=== PATIENT | female | born 1990 | race Caucasian/White ===

== ENCOUNTER → 2018-07-25 | Outpatient (CLI) | payer BC, SELFPAY ==
[2013-10-01 17:45] VITALS: BMI 20.7
[2018-07-25 16:34] LABS: Progesterone Level 0.57 ng/mL (See Comment)
[2018-07-25 16:39] LABS: Pregnancy, Serum, hCG Quali. NEGATIVE Negative (0-9 Nonpreg)
[2018-07-25 17:48] LABS: Chlamydia Trachomatis by PCR Negative (Negative); Neisserai gonorrhoeae by PCR Negative (Negative); Probe Check PASS; Sample Adequacy Control PASS; Specimen Processing Control PASS
[2018-07-30 11:28] LABS: HPV APTIMA, High Risk Negative (Negative)
== END | disposition home or self-care (01) ==
LOC: WOBLAB 14:22
PROVIDERS: Visit Provider Obstetrics & Gynecology
DX: Z30.430 Encounter for insertion of intrauterine contraceptive device (principal); Z12.4 Encounter for screening for malignant neoplasm of cervix; Z11.3 Encounter for screening for infections with a predominantly sexual mode of transmission
CPT/HCPCS: 36415; 84144; 84703; 87491; 87591; 87624; 88175; G0145

== ENCOUNTER 2019-01-13 18:21 | Emergency (ER) | payer BC, SELFPAY ==
[2019-01-13 18:22] VITALS: BP 153/118; PULSE 101; RESP 18; TEMP 36.8; O2SAT 95; BMI 22.1
--- NOTE | 2019-01-13 18:58 | ED.DCSUM_ITS ---
- ER Visit Summary Date of Service: 01/13/19 Chief Complaint: [Anxiety ] History of Present Illness: The patient is a 28 F [presents to the emergency department complaint of feeling anxious for the last 2 months. Patient states she is had a lot of stressors at work as well as at home. Patient has not a sc heduled appointment to see her family doctor tomorrow. Patient states that she used to be on Zoloft until about 2 months ago when she stopped taking it because she did not want to be on medication any longer. Patient denies feeling suicidal or homicidal. She denies any hallucinations. Patient does admit to drinking alcohol this evening. Patient presents with her best friend and her [id number]. They do not have any concern for suicidality.] Physical Examination: [HEENT-PERRLA, EOMI. Cranial nerves II through XII grossly intact. TMs clear. Mucous membranes moist. No adenopathy. Tearful. Cardiovascular-regular rate and rhythm without murmur or ectopy Lungs-clear to auscultation, chest wall stable without crepitus or subcu emphysema Abdomen-normoactive bowel sounds, soft, nontender, no rebound or rigidity, no peritoneal signs. Extremities-intact ?4, normal range of motion, normal pulses, atraumatic] Test Results: [None indicated] Emergency Department Course and Treatment: Patient given 1 dose of Ativan 1 mg p.o. [] Treatment Plan: [Will be given a prescription for 2 Ativan tablets and she will see her primary care physician tomorrow. She will be seen by social services analyst in the emergency department to help facilitate some outpatient follow-up counselor or psychiatry.] Disposition: [Discharged home in stable condition.] Impression: [Anxiety reaction] This note was generated with [employer] dictation software. It may contain incorrect words, spelling, and punctuation that were not noted in review of the chart prior to signing ED Disposition - Plan for ED Patient: Referrals: Shmuel Greene MD [Primary Care Provider] -
--- NOTE | 2019-01-13 19:01 | ED.DEP ---
ED Disposition - Plan for ED Patient: Instructions: Panic Attack Prescriptions: Lorazepam [Ativan] 1 mg PO TID PRN #3 tab PRN Reason: Anxiety Prescription Printed Referrals: Shmuel Greene MD [Primary Care Provider] - 1 Day
[2019-01-13] MEDS: LORazepam 1 MG Tablet PO (19:03)
[2019-01-13 19:08] VITALS: PULSE 72; RESP 16; O2SAT 100
== END 2019-01-13 19:13 | disposition home or self-care (01) ==
LOC: ED 19:11
PROVIDERS: Emergency Provider Emergency Medicine; Family Provider Family Medicine; PCP Family Medicine
DX: F41.1 Generalized anxiety disorder (principal); Z79.899 Other long term (current) drug therapy
CPT/HCPCS: 99283

== ENCOUNTER → 2019-11-04 | Outpatient (CLI) | payer BC, SELFPAY ==
[2019-11-11 15:36] LABS: HPV APTIMA, High Risk Negative (Negative); HPV Reflexed? YES, CHARGE PATIENT
== END | disposition home or self-care (01) ==
LOC: LABSPEC 13:19
PROVIDERS: PCP Family Medicine; Visit Provider Obstetrics & Gynecology
DX: Z12.4 Encounter for screening for malignant neoplasm of cervix (principal)
CPT/HCPCS: 87624; 88175; G0145

== ENCOUNTER → 2020-05-21 10:05 | Outpatient (CLI) | payer OTHER, SELFPAY ==
[2020-05-21 11:46] LABS: hCG Titer Quant., Serum 3037 mIU/mL (1-3)
== END ==
PROVIDERS: PCP Family Medicine; Visit Provider Student in an Organized Health Care Education/Training Program
DX: N92.6 Irregular menstruation, unspecified (principal)
CPT/HCPCS: 36415; 84702

== ENCOUNTER → 2020-05-23 16:08 | Outpatient (CLI) | payer OTHER, SELFPAY ==
[2020-05-23 18:08] LABS: hCG Titer Quant., Serum 6114 mIU/mL (1-3)
== END ==
PROVIDERS: PCP Family Medicine; Visit Provider Student in an Organized Health Care Education/Training Program
DX: O20.0 Threatened abortion (principal); Z3A.00 Weeks of gestation of pregnancy not specified
CPT/HCPCS: 36415; 84702

== ENCOUNTER → 2020-05-30 16:00 | Outpatient (CLI) | payer OTHER, SELFPAY ==
[2020-05-30 17:49] LABS: Absolute Lymphocyte Count 1.37 X10^3/uL (0.83-4.51); Absolute Neutrophil Count 5.6 X10^3/uL (2.0-7.7); Basophil# 0.04 X10^3/uL; Basophil% 0.5 % (0-1); Eosinophil# 0.14 X10^3/uL; Eosinophils% 1.8 % (0-5); Hematocrit 36.1 % (37-47); Hemoglobin 12.3 g/dL (12.0-15.0); Lymphocyte # 1.37 X10^3/ul (4.0); Lymphocyte % 17.7 % (19-41); Mean Corp Hgb Conc 34.1 g/dL (32-36); Mean Corpuscular Hgb 33.4 pg (27.0-32.0); Mean Corpuscular Volume 98.1 fL (81-99); Mean Platelet Vol. 9.9 fl (6.2-12.0); Monocyte# 0.58 X10^3/uL; Monocyte% 7.5 % (0-10); NRBC Flagged by Analyzer 0 % (0-5); Neutrophil # 5.56 X10^3/uL (2.7-7.7); Neutrophil % 72.1 % (47-70); Platelet Count 266 K/mm3 (150-450); RBC Distribution Width CV 11.6 % (11.6-14.6); RBC Distribution Width SD 41.8 fl (35.1-43.9); Red Blood Count 3.68 M/mm3 (4.2-5.4); White Blood Count 7.7 K/mm3 (4.4-11.0)
[2020-05-31 09:20] LABS: HIV - WCH Non-Reactive (Nonreactive); Hepatitis B Surface Antigen Non-Reactive (Nonreactive); Hepatitis C Antibody Non-Reactive (Nonreactive); Rubella IgG Reactive (Nonreactive)
[2020-06-02 01:42] LABS: Prenatal RPR NONREACTIVE (NONREACTIVE)
[2020-06-02 08:08] LABS: Chlamydia By Nucleic Acid AMP Negative (Negative)
[2020-06-02 09:35] LABS: Gonococcus By Nucleic Acid AMP Negative (Negative)
== END ==
PROVIDERS: PCP Family Medicine; Visit Provider Student in an Organized Health Care Education/Training Program
DX: Z34.81 Encounter for supervision of other normal pregnancy, first trimester (principal)
CPT/HCPCS: 36415; 85025; 86703; 86762; 86803; 87086; 87088; 87340; 87491; 87591

== ENCOUNTER → 2020-10-31 13:07 | Outpatient (CLI) | payer OTHER, SELFPAY ==
[2020-10-31 17:01] LABS: Hematocrit 32.7 % (37-47); Hemoglobin 10.8 g/dL (12.0-15.0); Mean Corpuscular Hgb 31.2 pg (27.0-32.0); Mean Corpuscular Volume 94.5 fL (81-99); Mean Platelet Vol. 9.7 fl (6.2-12.0); Platelet Count 233 K/mm3 (150-450); RBC Distribution Width CV 12.6 % (11.6-14.6); RBC Distribution Width SD 43.8 fl (35.1-43.9); Red Blood Count 3.46 M/mm3 (4.2-5.4); White Blood Count 9.7 K/mm3 (4.4-11.0)
[2020-10-31 17:11] LABS: Glucose Challenge Gest 1H 50g 146 mg/dL (70-140)
== END ==
PROVIDERS: PCP Family Medicine; Visit Provider Obstetrics & Gynecology
DX: Z34.83 Encounter for supervision of other normal pregnancy, third trimester (principal)
CPT/HCPCS: 82950; 85027

== ENCOUNTER → 2020-11-04 06:49 | Outpatient (CLI) | payer OTHER, SELFPAY ==
[2020-11-04 08:06] LABS: Glucose GTT-Gestation. Fasting 86 mg/dL (<105)
[2020-11-04 09:12] LABS: Glucose GTT-Gestational 1 Hr 207 mg/dL (<190)
[2020-11-04 10:05] LABS: Glucose GTT-Gestational 2 Hr 204 mg/dL (<165)
[2020-11-04 10:56] LABS: Glucose GTT-Gestational 3 Hr 98 L (<145)
== END ==
PROVIDERS: PCP Family Medicine; Referring Provider Obstetrics & Gynecology; Visit Provider Obstetrics & Gynecology
DX: O24.912 Unspecified diabetes mellitus in pregnancy, second trimester (principal); Z3A.00 Weeks of gestation of pregnancy not specified
CPT/HCPCS: 36415; 82951; 82952

== ENCOUNTER → 2020-12-29 | Outpatient (CLI) | payer OTHER, SELFPAY | END | disposition home or self-care (01) | PROVIDERS: PCP Family Medicine; Visit Provider Obstetrics & Gynecology | DX: Z36.85 Encounter for antenatal screening for Streptococcus B (principal) | CPT/HCPCS: 87081 ==

== ENCOUNTER 2021-01-16 07:10 | Inpatient (IN) | payer OTHER, SELFPAY ==
[2021-01-16] VITALS (32 sets, daily range): BP systolic 115–148; BP diastolic 66–95; PULSE 67–89; RESP 18; TEMP 36.8–37.1; O2SAT 90–100; BMI 28.8
[2021-01-16] MEDS: Lactated Ringers 1,000 ML 50 ML IV (07:30)
[2021-01-16] MEDS: Oxytocin 30 units/NS 500 ml 30 UNITS/500 ML IV.SOLN IV (08:13)
[2021-01-16 08:24] LABS: Absolute Lymphocyte Count 1.17 X10^3/uL (0.83-4.51); Absolute Neutrophil Count 7.1 X10^3/uL (2.0-7.7); Basophil# 0.02 X10^3/uL; Basophil% 0.2 % (0-1); Eosinophil# 0.08 X10^3/uL; Eosinophils% 0.9 % (0-5); Hematocrit 36.1 % (37-47); Hemoglobin 11.7 g/dL (12.0-15.0); Lymphocyte # 1.17 X10^3/ul (0.83-4.51); Mean Corp Hgb Conc 32.4 g/dL (32-36); Mean Corpuscular Hgb 29.3 pg (27.0-32.0); Mean Corpuscular Volume 90.3 fL (81-99); Mean Platelet Vol. 11.3 fl (6.2-12.0); Monocyte% 6.7 % (0-10); NRBC Flagged by Analyzer 0 % (0-5); Neutrophil % 78.9 % (47-70); Platelet Count 211 K/mm3 (150-450); RBC Distribution Width CV 12.5 % (11.6-14.6); RBC Distribution Width SD 40.8 fl (35.1-43.9)
--- NOTE | 2021-01-16 08:32 | PCM.HP.BLA ---
History and Physical Date of Admission: 01/16/21 Chief complaint: Induction of labor at term History present illness: 30-year-old G2, P1 at 39 weeks and 0 days with ABRAHAM: 01/23/2021 by 6-week ultrasound arrives for induction of labor with GDM A2. Denies headache, visual changes, chest pain, shortness of breath, nausea vomiting, right upper quadrant pain. Patient states good movement. is complicated by GDM A2, originally with IUD early and removed this , resolved polyhydramnios Obstetric history: G1: term G2: Current Past medical history: GDM A2 Medications: vitamin, Levemir 10 units nightly Past surgical history: None Allergies: No known drug allergies Social history: Half pack per day smoker, denies alcohol or drug use Family history: Denies history DVT or PE Review of systems: Besides above pertinent positives a full review of systems was performed and found to be negative Physical exam: Vitals: Blood pressure 137/92 pulse 70 General: Normal-appearing no acute distress HEENT: Normocephalic atraumatic no cervical lymphadenopathy Cardiac/respiratory: No use of accessory muscles, nonlabored breathing Abdomen: Soft, nontender, gravid Extremities: No peripheral edema normal peripheral pulses Psych: Normal affect normal demeanor nonpressured speech Labs: White blood cell count 9.0 hemoglobin 11.7 hematocrit 36.1 platelets 211 Assessment and plan: 30-year-old G2, P1 at 39 weeks arrives for induction of labor for GDM A2 at term Admit labor and delivery CEFM Induction via Pitocin and AROM GBS negative GDM A2: We will continue to monitor blood sugars and treat if needed Anesthesia to see Routine orders
[2021-01-16 08:46] LABS: Bedside Glucose 77 mg/dL (70-110)
[2021-01-16] MEDS: Lactated Ringers 500 ML 999 ML IV (08:52)
[2021-01-16] MEDS: fentaNYL-bupivacaine (epidural) 100 ML BAG EPIDURAL (09:46)
[2021-01-16 10:00] LABS: Bedside Glucose 70 mg/dL (70-110)
[2021-01-16 12:56] LABS: Bedside Glucose 81 mg/dL (70-110)
[2021-01-16] MEDS: Oxytocin 30 units/NS 500 ml 30 UNITS/500 ML IV.SOLN 334 UNITS IV (14:16)
--- NOTE | 2021-01-16 15:23 | EX.PCM.OBRPT ---
Vaginal Delivery Findings Description of Procedure: Preoperative diagnosis: Term , GDM A2 Postoperative diagnosis: Term , GDM A2, retained placenta Procedure: Spontaneous vaginal delivery, bedside banjo Surgeon: João Ochoa MD EBL: 400 cc Complications none Specimen: None Findings: Female infant in vertex position DOUG. Apgars 8/9. Placenta with cord traction and fundal massage noted to be mildly adhesed to the uterus. Cord avulsed. Manual extraction placenta revealed anterior portion of placenta mildly adhesed to uterus. Manual extraction of placenta performed. Bedside banjo removed remaining placental tissue. Bedside ultrasound post procedure showed thin endometrial stripe. First-degree midline perineal laceration noted and repaired in typical fashion. Consent: Patient arrived for induction of labor with GDM A2 at term. Progressed to complete dilation, had spontaneous vaginal delivery. Then noted to have above findings. Educated patient on retained placenta and agreed to manual extraction along with bedside banjo. Procedure: Normal spontaneous vaginal delivery of a viable female , vertex DOUG. Head and shoulders delivered with ease. Cord cut clamped. Baby handed off to patient. Placenta was attempted to deliver via cord traction and fundal massage, with above findings noted. Cord avulsed. Patient notified of findings. Manual extraction of placenta was performed and majority of placenta was removed. Remaining placental was removed via bedside banjo, anterior lip of the cervix was grasped with ring forcep and bedside banjo was used under direct visualization with small amounts of remaining placental membranes removed. Post procedure bedside ultrasound was performed and found to have thin endometrial stripe. IV Pitocin was used to facilitate uterine contractions.Good hemostasis was noted. First-degree midline perineal laceration was noted and repaired in typical fashion.
[2021-01-16] MEDS: Ibuprofen 600 MG Tablet PO (15:53)
[2021-01-16] MEDS: Acetaminophen 500 MG Tablet 1000 MG PO (19:56)
[2021-01-17] VITALS: BP 123/78; PULSE 78; RESP 18; TEMP 36.9
[2021-01-17 05:15] VITALS: BP 131/78; PULSE 62; RESP 18; TEMP 36.4
[2021-01-17] MEDS: Acetaminophen 500 MG Tablet 1000 MG PO (05:20)
[2021-01-17 06:26] LABS: Bedside Glucose 76 mg/dL (70-110)
--- NOTE | 2021-01-17 08:36 | PCM.DC ---
Discharge Instructions Diet Discharge Diet: No restrictions Activity Discharge Activity: Return to Normal Activity, May Drive and May Shower May resume sexual activity in: 4-6 weeks Weight Bearing Status: Weight bearing as tolerated Dressing / Incision Call your doctor if your incision/area has: Continuous Slow Oozing and Foul Smelling Discharge Call your doctor if you observe: Fever of 101 or Higher, Shortness of breath and Chest pain Follow Up Care Please Follow Up With: João Ochoa MD When: 2 week telehealth, 4 to 6 weeks Test Results: Test results from this visit will be discussed in further detail at your follow-up appointment, if applicable. Discharge Plan Admission Admit Date/Time: 01/16/21 07:10 Attending Provider: João Ochoa Primary Care Provider: Shmuel Greene Discharge Orders/Prescriptions Prescriptions: No Action Levemir Flexpen 100 unit/mL (3 mL) Insulin Pen 10 unit SUBCUT QHS RF: 0 PNV 29-1 29 mg iron- 1 mg Tablet 1 tab PO DAILY RF: 0 Disposition Discharge Orders: Discharge Patient (Routine); Ordered 01/17/21 Ordered By: Dr. João Ochoa
--- NOTE | 2021-01-17 08:36 | PCM.PN.OB ---
Subjective Subjective No overnight complaints. Pain well controlled. Objective Data Objective Data Vital Signs: Vital Signs Temp Pulse Resp BP Pulse Ox 97.5 F L 62 18 131/78 H 99 01/17/21 05:15 01/17/21 05:15 01/17/21 05:15 01/17/21 05:15 01/16/21 14:39 Oxygen Delivery Method Room Air Weight: 183 lb 13.848 oz Body Mass Index (BMI) 28.8 Intake & Output: Intake and Output for Last 24 Hours 01/15/21 01/16/21 01/17/21 23:59 23:59 23:59 Intake Total 1995.37 / Output Total 800 / 800 Balance 1196.37 / 1196.37 Lab / Micro Data Result Diagrams: 01/16/21 07:30 Labs: Laboratory Results - last 24 hr 01/16/21 07:30: Blood Type O POSITIVE, Antibody Screen NEGATIVE 01/16/21 08:31: POC Glucose 77 01/16/21 09:28: POC Glucose 70 01/16/21 12:49: POC Glucose 81 01/17/21 06:18: POC Glucose 76 Micro: Microbiology 01/16/21 08:15 Nasal Secretion SARS-CoV-2 Antigen (Rapid) - Final Physical Exam Const alert, oriented x3, no apparent distress, average body habitus, healthy appearing and well nourished HEENT normocephalic and moist oral mucous membranes Head and Scalp: atraumatic Face and Sinus: normal facial exam Eyes PERRL Neck full ROM Resp normal respiratory effort, no retractions and no use of accessory muscles GI normal to inspection, nondistended, normoactive bowel sounds Extremity normal to inspection, full ROM and no clubbing, cyanosis or edema Psych mental status grossly normal, affect normal, speech normal and activity/motor behavior normal Assessment & Plan (1) Vaginal delivery: PLAN: day 1. Pain well controlled. Bottlefeeding. No bleeding. Okay to discharge home today if okay with residential mental health worker
[2021-01-17 09:07] VITALS: BP 119/82; PULSE 80; RESP 18; TEMP 36.8
[2021-01-17] MEDS: Ibuprofen 600 MG Tablet PO (09:22)
[2021-01-17 13:05] VITALS: BP 125/87; PULSE 70; RESP 18; TEMP 36.5
== END 2021-01-17 16:35 | disposition home or self-care (01) | DRG 806 ==
PROVIDERS: Admitting Provider Obstetrics & Gynecology; PCP Family Medicine; Referring Provider Obstetrics & Gynecology; Visit Provider Obstetrics & Gynecology
DX: O24.429 Gestational diabetes mellitus in childbirth, unspecified control (principal); O72.0 Third-stage hemorrhage; Z37.0 Single live birth; F17.210 Nicotine dependence, cigarettes, uncomplicated; O70.0 First degree perineal laceration during delivery; O99.334 Smoking (tobacco) complicating childbirth; Z3A.39 39 weeks gestation of pregnancy
CPT/HCPCS: 59025; 59050; 82962; 85025; 86850; 86900; 86901; 87426; 99218; J7120; 90686; G0378

== ENCOUNTER → 2021-09-01 | Outpatient (CLI) | payer BC, SELFPAY ==
[2021-09-06 12:26] LABS: HPV APTIMA, High Risk Negative (Negative)
== END | disposition home or self-care (01) ==
LOC: LABSPEC 11:32
PROVIDERS: PCP Family Medicine; Visit Provider Student in an Organized Health Care Education/Training Program
DX: Z12.4 Encounter for screening for malignant neoplasm of cervix (principal)
CPT/HCPCS: 87624; 88175; G0145

== ENCOUNTER → 2022-09-03 | Outpatient (CLI) | payer BC, SELFPAY ==
[2022-09-03 13:00] LABS: Absolute Lymphocyte Count 1.46 X10^3/uL (0.83-4.51); Absolute Neutrophil Count 5.7 X10^3/uL (2.0-7.7); Basophil# 0.07 X10^3/uL; Basophil% 0.9 % (0-1); Eosinophil# 0.16 X10^3/uL; Hematocrit 37.9 % (37-47); Hemoglobin 12.8 g/dL (12.0-15.0); Lymphocyte # 1.46 X10^3/ul (0.83-4.51); Lymphocyte % 18.6 % (19-41); Mean Corp Hgb Conc 33.8 g/dL (32-36); Mean Corpuscular Hgb 30.9 pg (27.0-32.0); Mean Corpuscular Volume 91.5 fL (81-99); Mean Platelet Vol. 9.2 fl (6.2-12.0); Monocyte# 0.43 X10^3/uL; Monocyte% 5.5 % (0-10); NRBC Flagged by Analyzer 0 % (0-5); Neutrophil # 5.69 X10^3/uL (2.7-7.7); Neutrophil % 72.7 % (47-70); Platelet Count 326 K/mm3 (150-450); RBC Distribution Width CV 12.2 % (11.6-14.6); RBC Distribution Width SD 40.8 fl (35.1-43.9); Red Blood Count 4.14 M/mm3 (4.2-5.4); White Blood Count 7.8 K/mm3 (4.4-11.0)
[2022-09-03 13:15] LABS: hCG Titer Quant., Serum < 1 mIU/mL (1-3)
[2022-09-03 13:40] LABS: Estradiol 12.1 pg/mL; Follicle Stimulating Hormone 2.8 mIU/mL; Luteinizing Hormone 5.4 mIU/mL; Prolactin 7.1 ng/mL; T4 Free Direct 1.07 ng/dL (0.76-1.46)
[2022-09-07 11:09] LABS: Testosterone, % Free 0.54 % (0.50-2.80); Testosterone, Free 0.07 ng/dL (0.10-0.85); Testosterone, Total 13 ng/dL (8-60)
== END | disposition home or self-care (01) ==
LOC: WOBLAB 11:41
PROVIDERS: PCP Family Medicine; Visit Provider Nurse Practitioner Women's Health
DX: Z01.419 Encounter for gynecological examination (general) (routine) without abnormal findings (principal); N91.1 Secondary amenorrhea
CPT/HCPCS: 36415; 82670; 83001; 83002; 84146; 84402; 84403; 84439; 84443; 84702; 85025